=== PATIENT | male | born 2005 | race Caucasian/White ===

== ENCOUNTER 2024-05-01 08:44 | Inpatient (IN) | payer OTHER, SELFPAY ==
[2024-05-01] VITALS (7 sets, daily range): BP systolic 125–136; BP diastolic 65–80; PULSE 74–117; RESP 16–24; O2SAT 94–98; BMI 27.4
--- NOTE | 2024-05-01 08:57 | ED.PSYCH ---
HPI - Psych General Chief Complaint: Psychiatric Symptoms Stated Complaint: si, from [facility] Time Seen by Provider: 05/01/24 08:51 Source: patient and EMS Mode of arrival: EMS Limitations: no limitations History of Present Illness HPI Narrative: 18 year old male with pmhx significant for presents to the ED today via EMS from [facility] on a section 12 for evaluation of SI. Per [facility], patient has been noncompliant with medication x1 week. Patient states I want to and burn this place to the ground . Patient arrives very uncooperative refusing to change screaming complaint: anxiety Onset (ago): hour(s) (2) Duration: constant Relieving factors: none Exacerbating factors: none Associated psychiatric symptoms: depression Associated symptoms: denies other symptoms Related Data Allergies Allergy/AdvReac Type Severity Reaction Status Date / Time No Known Allergies Allergy Verified 05/01/24 08:56 Review of Systems Review of Systems: Constitutional: No fever, chills, fatigue, night sweats, weight changes ENT/Mouth: No ear pain, hearing loss, nasal congestion, sinus pain, rhinorrhea, sore throat Eyes: No eye pain, swelling, redness, vision changes, discharge Cardio: No chest pain, palpitations, OSORIO, orthopnea, peripheral edema Pulm: No SOB, cough, sputum, wheezing, dyspnea, hemoptysis GI: No nausea, vomiting, hematemesis, abdominal pain, diarrhea, constipation, hematochezia, melena : No irregular bleeding, dysuria, frequency, urgency, hesitancy, hematuria, flank pain, urinary flow changes, urinary incontinence or retention MSK: No back pain, neck pain, joint pain, myalgias Skin: No lesions, rashes Neuro: No weakness, numbness, paresthesias, LOC, dizziness, headache Psych: No anxiety/panic, depression, HI, AH/VH, +SI All other systems reviewed and are negative. Constitutional: Constitutional: Reports no additional constitutional complaints [facility] Past Medical History Attestation statement: The following information was validated with the patient. [facility] Narrative: Substance abuse, depression Source: old records reviewed and nursing notes reviewed Social History Social History Unable to assess alcohol history related to: Refusing to respond Use of substances other than those prescribed or required for medical reasons: Refusing to respond Advance Directives: No Advance Directives Information Provided: No Do you have a plan to hurt others: No Plan Physical Exam Vital Signs: Vital Signs: Last Vital Signs Resp 20 05/01/24 09:13 BMI result Body Mass Index 27.4 Mild distress Const: General: well developed and alert HEENT: Other: No sign of injury Head: Yes normal to inspection General nose exam: Normal external nose present Face and sinus: Yes normal facial exam Mouth: Normal oral and palatal mucosa present Teeth and gingiva: dentition normal Throat: Yes posterior oropharynx normal Eyes: General: appearance normal, both eyes and all related structures Neck: Neck: Yes normal visual inspection Chest: Chest palpation & inspection: normal inspection of the chest Resp: Effort & Inspection: normal respiratory effort Cardio: Jugular venous distension: no JVD Rate: regular rate GI: Inspection: Yes normal to inspection Skin: General skin exam: no rashes or lesions noted Neuro: Other: No focal deficit Cranial nerves: Yes CN's II-XII intact bilaterally Course Reevaluation(s) Reevaluation #1: Patient got IM Zyprexa 10 mg at 2 mg Ativan IM, he agree with the medication he was no held for the injection Time: 09:42 Reevaluation #2: Patient continued to be agitated he climb the window of the room. He was placed in physical restraints at this point he was given more meds I was present during this Time: 13:31 Reevaluation #3: Continued to be extremely agitated thrashing in bed screaming we will require more meds we will try IM Versed which quicker onset. We will more likely need to monitor O2 sat a hall monitor when more sedated Time: 13:57 Additional Reevaluation(s): 14:44 reexamined sleeping in NAD Medications Administered Discontinued Medications Generic Name Dose Route Start Last Admin Trade Name Freq PRN Reason Stop Dose Admin Albuterol Sulfate 2 puff 05/01/24 13:38 05/01/24 13:45 Albuterol Sulfate 90 Mcg 8 Gm Inhaler INHALE 05/01/24 13:39 2 puff ONCE ONE Administration Lorazepam 2 mg 05/01/24 09:32 05/01/24 09:35 Lorazepam 2 Mg/Ml Vial IM 05/01/24 09:33 2 mg ONCE ONE Administration Lorazepam 2 mg 05/01/24 13:22 05/01/24 13:30 Lorazepam 2 Mg/Ml Vial IM 05/01/24 13:23 2 mg ONCE ONE Administration Midazolam HCl 5 mg 05/01/24 13:54 05/01/24 14:00 Midazolam Hcl 5 Mg/Ml Vial IM 05/01/24 13:55 5 mg ONCE ONE Administration Olanzapine 10 mg 05/01/24 09:32 05/01/24 09:35 Olanzapine 10 Mg Vial IM 05/01/24 09:33 10 mg STAT STA Administration Ziprasidone 10 mg 05/01/24 13:14 05/01/24 13:20 Ziprasidone Mesylate 20 Mg Vial IM 05/01/24 13:15 10 mg ONCE ONE Administration Medical Decision Making Medical Decision Making [facility] Narrative: Patient presented on a Section 12 is certainly agitated we will go ahead and get a psych eval and administer sedation Differential Diagnosis Differential Diagnoses: The differential diagnosis associated with the presentation includes Psychosis/drug abuse Admission/Observation Consideration of admission/observation: Escalation of care including admission/observation considered Lab Data 05/01/24 09:46 05/01/24 09:46 Labs: Lab Results 05/01/24 Range/Units 09:46 WBC 10.0 (4.8-10.8) X10*3/uL RBC 5.27 (4.60-5.80) X10*6/uL Hgb 15.7 (14.0-18.0) g/dl Hct 46.0 (42.0-52.0) % MCV 87.3 (80.0-98.0) fL MCH 29.8 (27.0-33.0) pg MCHC 34.1 (31.0-36.0) g/dl RDW 12.0 (11.0-16.0) % Plt Count 343 (160-400) X10*3/uL MPV 9.7 (9.4-12.4) fL Immature Gran % (Auto) 0.3 (0.0-0.4) % Neut % (Auto) 63.2 (45-73) % Lymph % (Auto) 27.3 (20-40) % Hardy % (Auto) 7.9 (2-11) % Eos % (Auto) 0.8 (0-4) % Baso % (Auto) 0.5 (0-2) % Lymph # (Auto) 2.7 (1.2-4.9) X10*3/uL Hardy # (Auto) 0.8 (0.1-1.2) X10*3/uL Eos # (Auto) 0.1 (0.0-0.4) X10*3/uL Baso # (Auto) 0.1 (0.0-0.2) X10*3/uL Abs Immat Gran (auto) 0.03 (0.00-0.03) X10*3/uL Absolute Neuts (auto) 6.3 (2.0-8.3) x10*3/uL Absolute Nucleated RBC 0.000 (0.0-0.012) X10*3/uL Nucleated RBC % (auto) 0.0 (0.0-0.2) /100WBC Hold Purple Top SEE NOTE Sodium 141 (135-145) mmol/L Potassium 3.9 (3.3-5.1) mmol/L Chloride 107 (96-108) mmol/L Carbon Dioxide 26 (22-29) mmol/L Anion Gap 12 (12-20) BUN 16 (9-16) mg/dL Creatinine 0.99 (0.5-1.4) mg/dL Estim Creat Clear Calc 116.1 Estimated GFR > 60 Random Glucose 93 (60-115) mg/dL Calcium 9.0 (8.4-10.2) mg/dL Total Bilirubin 0.7 (0.0-1.0) mg/dL AST 32 (5-37) U/L ALT 24 (0-40) U/L Alkaline Phosphatase 81 (39-117) U/L Total Protein 7.7 (6.5-8.0) g/dL Albumin 4.5 (3.5-5.0) g/dL Salicylates < 5.0 L (15-30) mg/dL Acetaminophen < 3 (<30) mcg/mL Ethyl Alcohol < 10 mg/dL Discharge Plan Discharge Clinical Impression: Depression Qualifiers: Depression Type: major depressive disorder Major depression recurrence: single episode Active/Remission status: currently active Major depression episode severity: severe Psychotic features: with psychotic features Qualified Code(s): 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
[2024-05-01] MEDS: OLANZapine 10 MG VIAL IM (09:35)
[2024-05-01] MEDS: LORazepam 2 MG/ML VIAL IM ×2 (09:35→13:30)
--- NOTE | 2024-05-01 09:50 | PC.NURSE ---
pt [facility] on a section 12 s/p being noncompliant w/ medication x 1 week. pt reports wanting to take meds but is unable to do so. pt reported that he wants to and burn this place to the ground. uncooperative upon EMS arrival. upon ED arrival - pt extremely agitated/uncooperative/refusing currency exchange specialist process w/ security. additional security/MD called to the pod. pt then became agreeable to currency exchange specialist process. pt then continuously became more agitated while in his room - ripping pillow apart, removing clothing, taking mattress off of the bed and becoming abusive towards himself - hitting his head on the tv/punching the wall. security/MD called to bedside once again. pt chemically restrained per provider order. see restraint paperwork for further details. pt agreeable to having labs drawn/sent to lab. belongings removed from pt's room to promote patient safety. on RA w/o difficulty - no sob/wob noted. respirations even/unlabored. plan of care ongoing.
[2024-05-01 09:52] LABS: MANUAL DIFF FLAG NO
[2024-05-01 09:59] LABS: Basophils Absolute Auto 0.1 X10*3/uL (0.0-0.2); Basophils Percent Auto 0.5 % (0-2); Eosinophils Absolute Auto 0.1 X10*3/uL (0.0-0.4); Eosinophils Percent Auto 0.8 % (0-4); Hemoglobin 15.7 g/dl (14.0-18.0); Imm Gran Abs Auto 0.03 X10*3/uL (0.00-0.03); Imm Gran Pct Auto 0.3 % (0.0-0.4); Lymphocytes Absolute Auto 2.7 X10*3/uL (1.2-4.9); Lymphocytes Percent Auto 27.3 % (20-40); Mean Corpuscular HGB Conc 34.1 g/dl (31.0-36.0); Mean Corpuscular Hemoglobin 29.8 pg (27.0-33.0); Mean Corpuscular Volume 87.3 fL (80.0-98.0); Mean Platelet Volume 9.7 fL (9.4-12.4); Monocytes Absolute Auto 0.8 X10*3/uL (0.1-1.2); Monocytes Percent Auto 7.9 % (2-11); Neutrophils Absolute Auto 6.3 x10*3/uL (2.0-8.3); Neutrophils Percent Auto 63.2 % (45-73); Platelet Count 343 X10*3/uL (160-400); Red Blood Count 5.27 X10*6/uL (4.60-5.80)
[2024-05-01 10:14] LABS: Acetaminophen LAB < 3 mcg/mL (<30); Alanine Aminotransferase 24 U/L (0-40); Albumin Level 4.5 g/dL (3.5-5.0); Alkaline Phosphatase 81 U/L (39-117); Anion Gap 12 (12-20); Aspartate Amino Transferase 32 U/L (5-37); Bilirubin Total 0.7 mg/dL (0.0-1.0); Blood Urea Nitrogen 16 mg/dL (9-16); Carbon Dioxide 26 mmol/L (22-29); Chloride 107 mmol/L (96-108); Creatinine Clr Calc Pharmacy 116.1; Estimated Glomerular Filt Rate > 60; Ethanol < 10 mg/dL; Glucose Random 93 mg/dL (60-115); Potassium 3.9 mmol/L (3.3-5.1); Salicylate < 5.0 mg/dL (15-30); Sodium 141 mmol/L (135-145); Total Protein 7.7 g/dL (6.5-8.0)
--- NOTE | 2024-05-01 10:49 | PC.NURSE ---
pt becoming more calm/cooperative s/p medication administration. attempted to place pt's mattress back into his room to promote comfort but he refused. will reattempt. lights dimmed to promote comfort. pt remains on RA w/o difficulty - no sob/wob noted. respirations even/unlabored. unable to complete med rec d/t pt history stating he has not taken medication since november. diet order placed. care team consult placed. plan of care ongoing.
[2024-05-01] MEDS: Ziprasidone Mesylate 20 MG VIAL 10 MG IM (13:20)
--- NOTE | 2024-05-01 13:32 | PC.NURSE ---
pt asked this RN for a cup of water. pt provided w/ water and provided information to pt w/ information about when lunch was going to be here. pt then became increasingly agitated/throwing himself against the wall and attempting to throw bedside table. security/MD called bedside for assistance. 10mg geodon via IM administered @ 1320. pt then proceeded to take off all of his hospital attire and climb into the window sill in his room. pt refusing to deescalate. pt assisted out of window sill by security. additional 2mg ativan administered via IM and pt placed in 4 point restraints by security at 1330. 1:1 sitter then bedside. pt given rescue inhaler d/t increased sob. pt otherwise in no respiratory distress. no sob/wob noted. respirations even/unlabored. plan of care ongoing.
[2024-05-01] MEDS: Albuterol Sulfate 90 MCG 8 GM INHALER 2 PUFF INHALE (13:45)
--- NOTE | 2024-05-01 13:54 | MHC.CARE ---
Pt meets the criteria for IPLOC. Section 12a in chart. Provider in agreement.
[2024-05-01] MEDS: Midazolam HCl 5 MG/ML VIAL IM (14:00)
--- NOTE | 2024-05-01 14:02 | PC.NURSE ---
pt remains increasingly agitated/aggressive despite previous medications/remaining in physical restraints. MD/security remain bedside. additional 5mg versed administered via IM. this RN suggested that pt should be moved to the main for observation. per charge hand, no beds available in the main ED at this time. pt placed on the cardiac tech. vital signs cycling q5min. pt currently remains on RA w/ no difficulty. no sob/wob noted. respirations even/unlabored. pt remains in 4 point physical restraints. 1:1 sitter remains bedside. plan of care ongoing.
--- NOTE | 2024-05-01 14:18 | PC.NURSE ---
Pt continues to scream, complaining of L arm pain. CMS/ROM checked - patient able to move L arm w/o difficulty, observed punching desk in room. Patient states he can't feel his elbow . Security called to adjust restraint per patient's request, awaiting their arrival.
--- NOTE | 2024-05-01 15:08 | PC.NURSE ---
attempted to have security to remove pt's RUE - pt continuously thrashing body around/aggressive/agitated. unable to remove physical restraints at this time. all of pt's extremities remain in physical restraints at this time. 1:1 sitter remains present.
--- NOTE | 2024-05-01 15:30 | PC.NURSE ---
pt more calm/cooperative at this time. restraints on RLE/LLE removed w/o difficulty. will attempt to remove upper extremities shortly.
--- NOTE | 2024-05-01 15:45 | PC.NURSE ---
RUE/LUE restraints removed at this time. all extremities remain free from physical restraints at this time. pt tolerating transition w/o difficulty. CMS/ROM intact. pt remains on RA w/o difficulty. no sob/wob noted. respirations even/unlabored. lights dimmed to promote comfort. plan of care ongoing.
--- NOTE | 2024-05-01 16:52 | PC.NURSE ---
urine obtained/sent to lab. pt remains calm/cooperative at this time.
[2024-05-01 17:06] LABS: Appearance Urine Clear; Color Urine Yellow; Glucose Urine UA Negative (Negative); Leukocyte Esterase Urine Negative (Negative); Nitrite Urine Negative (Negative); Specific Gravity - Urine 1.015 (1.005-1.025); UMIC TRIGGER UACC YES; Urine Blood Trace (Negative); Urine Ketones Negative (Negative); Urine Protein Negative (Neg-Trace)
[2024-05-01 17:10] LABS: Bacteria Urine None Seen (None Seen); Hyaline Casts Urine 0-2 /LPF (0-2); Squamous Epithelial Cell Urine 0-2 /HPF (0-2); WBC Urine 0-5 /HPF (0-5)
[2024-05-01 17:16] LABS: Amphetamine Screen Urine Not Detected (Not Detect); Barbiturates, Urine Not Detected (Not Detect); Benzodiazepines Screen Urine POSITIVE (Not Detect); Buprenorphine Scr Not Detected (Not Detect); Cannabinoid Screen Urine POSITIVE (Not Detect); Cocaine Screen Urine Not Detected (Not Detect); Fentanyl, urine Not Detected (Not Detect); Methadone Screen, Urine Not Detected (Not Detect); Opiate Screen Urine Not Detected (Not Detect); Oxycodone Screen Urine Not Detected (Not Detect); Phencyclidine Screen Urine Not Detected (Not Detect)
--- OUTSIDE RECORDS SUMMARY | 2024-05-01 17:40 | XMS_ITS ---
Author Organization [facility] Address [address] [place] [address] Phone Care Team Providers Care Band Bias Machine Operator Name Role Phone Laine Conklin MD Primary Care Provider Care Management Program Status:Enrolled (Active) Start date:01/11/2023 Enrollment date:01/11/2023 Enrollment reason:Medical Complexity Case Team Name Relationship Phone Brittney Payne MA (Responsible Staff) [phone] Continued Care and Services Coordination
--- OUTSIDE RECORDS SUMMARY | 2024-05-01 17:40 | XMS_ITS | Encounter Summary ---
Author Organization [facility] Address [address] [place] [address] Phone Care Team Providers Care Mail Distribution Scheme Examiner Name Role Phone Laine Conklin MD Primary Care Provider Encounter Details Date Type Department Care Team (Late st Contact Info) Description 07/17/2017 Conversion Encounter [facility] - [address] [address] Laine Conklin MD [address] [place] [id number] Social History Tobacco Use Types Packs/Day Years Used Date Smoking Tobacco: Never Assessed Sex and Gender Information Value Date Recorded Sex Assigned at Not on file Legal Sex Male 6:24 PM EDT Gender Identity Not on file Sexual Orientation Straight 05/21/2022 1: 27 PM EDT documented as of this encounter Plan of Treatment Not on file documented as of this encounter Visit Diagnoses Not on filedocumented in this encounter Care Teams Mail Distribution Scheme Examiner Relationship Specialty Start Date End Date Laine Conklin MD [address] [place] [phone] PCP - General 07/06/17 documented as of this encounter
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
--- OUTSIDE RECORDS SUMMARY | 2024-05-01 17:40 | XMS_ITS | Encounter Summary ---
Author Organization [facility] Address [address] [place] [address] Phone Care Team Providers Care Barge Captain Name Role Phone Laine Conklin MD Primary Care Provider [phone] Reason for Visit * Reason Comments Med Refill Encounter Details Date Type Department Care Team (Late st Contact Info) Description 07/11/2019 Refill [facility] [place] [address] Laine Conklin MD [address] [place] [address] Social History Tobacco Use Types Packs/Day Years Used Date Smoking Tobacco: Never Smokeless Tobacco: Never Alcohol Use Standard Drinks/Week Comments No 0 (1 standard drink = 0.6 oz pur e alcohol) Hunger/Food Answer Date Recorded No 11/10/2018 Stable Housing Answer Date Recorded No 03/03/2019 Transportation Concerns Answer Date Rec orded No 11/10/2018 Hazards in Home Answer Date Recorded No 11/10/2018 Financing Utilities Answer Date Recorde d No 11/10/2018 Safety at Home Answer Date Recorded No 11/10/2018 Outside Support Answer Date Recorded No 11/10/2018 Understanding Health Concerns Answer Da te Recorded No 11/10/2018 Financing Health Concerns Answer Date R ecorded No 11/10/2018 Missing School or Work Answer Date Homero rded No 11/10/2018 Sex and Gender Information Value Date Recorded Sex Assigned at Not on file Legal Sex Male 6:24 PM EDT Gender Identity Not on file Sexual Orientation Straight 05/21/2022 1: 27 PM EDT documented as of this encounter Plan of Treatment Not on file documented as of this encounter Visit Diagnoses Not on filedocumented in this encounter Care Teams Barge Captain Relationship Specialty Start Date End Date Laine Conklin MD [address] [place] [address] [address] [place] [address] PCP - General 07/06/17 documented as of this encounter
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
--- OUTSIDE RECORDS SUMMARY | 2024-05-01 17:40 | XMS_ITS | Encounter Summary ---
Author Organization [facility] Address [address] [place] [address] Phone Care Team Providers Care Manager Cardiac Name Role Phone Laine Conklin MD Primary Care Provider [phone]- [phone] Reason for Visit * Reason Comments Med Refill Encounter Details Date Type Department Care Team (Late st Contact Info) Description 11/27/2019 Refill [facility] [place] [address] Laine Conklin MD [address] [place] [address] Social History Tobacco Use Types Packs/Day Years Used Date Smoking Tobacco: Never Smokeless Tobacco: Never Alcohol Use Standard Drinks/Week Comments No 0 (1 standard drink = 0.6 oz pur e alcohol) Hunger/Food Answer Date Recorded No 11/24/2019 Stable Housing Answer Date Recorded No 11/24/2019 Transportation Concerns Answer Date Rec orded No 11/24/2019 Hazards in Home Answer Date Recorded No [...] on filedocumented in this encounter Care Teams Manager Cardiac Relationship Specialty Start Date End Date Laine Conklin MD [address] [place] [address] [address] [place] [address] PCP - General 07/06/17 documented as of this encounter
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
--- NOTE | 2024-05-01 22:15 | PHA.MEDREC ---
Pharmacy Consult ? Medication Reconciliation Pharmacy has completed the medication reconciliation.
[2024-05-02 00:13] VITALS: BP 118/61; PULSE 82; RESP 20; TEMP 37; O2SAT 96
[2024-05-02] MEDS: diphenhydrAMINE HCL 50 MG/ML VIAL IM (00:24)
[2024-05-02] MEDS: Haloperidol Lactate 5 MG/ML VIAL 10 MG IM (00:25)
[2024-05-02] MEDS: Midazolam HCl 5 MG/ML VIAL 4 MG IM (00:45)
[2024-05-02] MEDS: OLANZapine 5 MG TABLET PO (07:55)
[2024-05-02] MEDS: lamoTRIgine 100 MG TABLET 200 MG PO (07:55)
[2024-05-02] MEDS: Sertraline HCL 25 MG TABLET PO (07:55)
--- NOTE | 2024-05-02 08:12 | PC.NURSE ---
Pt ambulatory to restroom, given breakfast, took medication as ordered I have nothing to do today, might as well take it. frequent checks by staff, on video monitor.
--- NOTE | 2024-05-02 09:43 | ECG_ITS ---
Test Reason : multiple psych medications Blood Pressure : */* mmHG Vent. Rate : 57 BPM Atrial Rate : 57 BPM P-R Int : 186 ms QRS Dur : 92 ms QT Int : 382 ms P-R-T Axes : 11 72 48 degrees QTcB Int : 371 ms Sinus bradycardia Otherwise normal ECG No previous ECGs available Referred By: Jeffery Ervin Electronically Signed By: HUBERT LOVING MD
[2024-05-02 12:41] VITALS: BP 137/52; PULSE 77; RESP 14; TEMP 37.1; O2SAT 99
--- NOTE | 2024-05-02 12:52 | PC.NURSE ---
Pt used phone to call family, calm and cooperative with staff at this time. snacks and drinks provided.
[2024-05-02 14:20] VITALS: BMI 25.7
[2024-05-02 14:21] VITALS: BP 138/77; PULSE 88; RESP 18; TEMP 36.9; O2SAT 98
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
[2024-05-02] MEDS: QUEtiapine Fumarate 100 MG TABLET PO (19:15)
--- NOTE | 2024-05-02 19:44 | PC.NURSE ---
Patient asked to go through his phone to get numbers. No phone found in closet & no phoone listed on M5 belongings list. Tw called POD asking if it's down there, as there's no belongings inventoried in computer from the ED. They stated the belongings may not have been inventoried because of the unit acuity at the time. Patient states he remembers having his phone down there because that was part of why he was combative & restrained I was pissed they were trying to take my phone. Tw reported the above to night charge nurse. Our staff will double check his belongings up here &, if not found, will follow up with ED & security.
[2024-05-02 19:52] VITALS: BP 134/74; PULSE 64; TEMP 36.6; O2SAT 98
[2024-05-02] MEDS: QUEtiapine Fumarate 50 MG TABLET PO (20:25)
[2024-05-02] MEDS: Melatonin 3 MG TABLET 6 MG PO (20:25)
--- NOTE | 2024-05-02 23:54 | PC.NURSE ---
Pt reported that his phone was a black iPhone in a black case. T/w went to the ED Pod to investigate. T/w did not find a phone matching that description.?
[2024-05-03 08:35] LABS: Ammonia 31 umol/L (13-55)
[2024-05-03 08:38] LABS: Estimated Average Glucose 103 mg/dL; Hemoglobin A1c % 5.2 % (<6.0); Total Hemoglobin (HGBA1C) 3896.0131 umol/L
[2024-05-03 08:46] VITALS: BP 122/59; PULSE 60; TEMP 36.6; O2SAT 98
[2024-05-03] MEDS: lamoTRIgine 100 MG TABLET 200 MG PO (08:48)
[2024-05-03] MEDS: OLANZapine 5 MG TABLET PO (08:49)
[2024-05-03] MEDS: Sertraline HCL 25 MG TABLET PO (08:49)
[2024-05-03 08:50] LABS: Cholesterol 144 mg/dL (<200); HDL Cholesterol 41 mg/dL (>40); LDL Cholesterol Calculated 86 mg/dL (<100); Triglycerides 86 mg/dL (<150)
[2024-05-03 09:04] LABS: TSH reflex Free T4 0.62 uIU/mL (0.32-4.0)
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
[2024-05-03] MEDS: Nicotine 21 MG PATCH.TD24 TRANSDERMA (11:04)
[2024-05-03] MEDS: Nicotine Polacrilex 2 MG GUM 4 MG BUCCAL ×2 (11:05→14:25)
[2024-05-03] MEDS: Methylphenidate HCl 10 MG TABLET PO (13:18)
[2024-05-03 15:36] VITALS: BMI 25.8
[2024-05-03] MEDS: Acetaminophen 325 MG TABLET 650 MG PO (17:12)
[2024-05-03] MEDS: Albuterol Sulfate 90 MCG 8 GM INHALER 2 PUFF INHALE (18:05)
[2024-05-03 20:00] VITALS: BP 148/82; PULSE 79; RESP 16; TEMP 36.6; O2SAT 97
[2024-05-03] MEDS: Nicotine Polacrilex 2 MG GUM BUCCAL (20:56)
[2024-05-03] MEDS: QUEtiapine Fumarate 50 MG TABLET 150 MG PO (20:57)
[2024-05-03] MEDS: Melatonin 3 MG TABLET 6 MG PO (20:57)
--- NOTE | 2024-05-04 07:19 | PC.NURSE ---
Patient approached the medication room and requested his morning medications at approximately 0710. When he was informed that morning medications are scheduled for 9 am, the patient loudly stated I can't get my meds, I can't eat until breakfast comes, I can't do anything. The longer I'm here, the more depressed I get! Assisted through this statement the patient turned away from the medication room door and was walking away.
--- NOTE | 2024-05-04 07:24 | PC.NURSE ---
At this time, this patient was pacing the robert quickly, stating loudly I wish I was in fucking intermediate. At least in intermediate there's a yard, at least in intermediate I can lift weights, I'd rather be in intermediate!
[2024-05-04] MEDS: OLANZapine 5 MG TABLET PO (07:36)
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
[2024-05-04 08:43] VITALS: BP 137/71; PULSE 88; RESP 16; TEMP 36.3; O2SAT 98
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
[2024-05-04] MEDS: Methylphenidate HCl 10 MG TABLET PO ×2 (09:07→12:17)
[2024-05-04] MEDS: lamoTRIgine 100 MG TABLET 200 MG PO (09:07)
[2024-05-04] MEDS: Sertraline HCL 25 MG TABLET PO (09:07)
[2024-05-04] MEDS: hydrOXYzine HCL 25 MG TABLET PO ×2 (11:06→18:14)
[2024-05-04] MEDS: Nicotine 21 MG PATCH.TD24 TRANSDERMA (12:17)
[2024-05-04] MEDS: Nicotine Polacrilex 2 MG GUM BUCCAL (13:55)
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
== END 2024-05-04 18:56 | disposition home or self-care (01) | DRG 758 ==
LOC: HO.ED 05-02 00:30 → HO.PM5 05-02 12:38
PROVIDERS: Emergency Medicine; Admitting Provider Psychiatry & Neurology Psychiatry; Emergency Provider Emergency Medicine Emergency Medical Services; PCP Pediatrics; Visit Provider Psychiatry & Neurology Psychiatry
DX: F63.81 Intermittent explosive disorder (principal); F33.2 Major depressive disorder, recurrent severe without psychotic features; F11.11 Opioid abuse, in remission; F14.11 Cocaine abuse, in remission; F43.10 Post-traumatic stress disorder, unspecified; F90.9 Attention-deficit hyperactivity disorder, unspecified type; Z78.1 Physical restraint status; Z91.199 Patient's noncompliance with other medical treatment and regimen due to unspecified reason; Z79.899 Other long term (current) drug therapy
CPT/HCPCS: 36415; 80053; 80061; 80143; 80179; 80307; 81001; 82140; 83036; 84443; 85025; 93005; 99285; J1200; J1630; J2060; J2250; J2359; J3486; S9485

== ENCOUNTER → 2024-05-02 09:43 | Outpatient (BNV) | payer OTHER, SELFPAY | PROVIDERS: Admitting Provider Psychiatry & Neurology Psychiatry; Emergency Provider Emergency Medicine Emergency Medical Services; PCP Pediatrics; Visit Provider Internal Medicine Cardiovascular Disease | DX: R00.1 Bradycardia, unspecified (principal) | CPT/HCPCS: 93010 ==

== ENCOUNTER → 2024-05-02 12:37 | Outpatient (BNV) | payer OTHER, SELFPAY | PROVIDERS: Admitting Provider Psychiatry & Neurology Psychiatry; Emergency Provider Emergency Medicine Emergency Medical Services; PCP Pediatrics; Visit Provider Psychiatry & Neurology Psychiatry | DX: F33.2 Major depressive disorder, recurrent severe without psychotic features (principal); F63.81 Intermittent explosive disorder; F43.11 Post-traumatic stress disorder, acute; F90.9 Attention-deficit hyperactivity disorder, unspecified type | CPT/HCPCS: 99239; 99499 ==